=== PATIENT | male | born 1980 | race Caucasian/White ===

== ENCOUNTER 2019-11-18 12:49 | Emergency (ER) | payer MEDICAID, OTHER ==
[~2019-11-18] VITALS: Ht 188 cm; Wt 66.0 kg
[2019-11-18 13:05] VITALS: BP 119/85
== END 2019-11-18 14:21 | disposition home or self-care (01) ==
LOC: ER 12:49
DX: Z76.0 Encounter for issue of repeat prescription (principal); F20.9 Schizophrenia, unspecified
CPT/HCPCS: 99283

== ENCOUNTER 2020-03-23 15:06 | Emergency (ER) | payer MEDICAID ==
[~2020-03-23] VITALS: Ht 188 cm; Wt 80.0 kg
[2020-03-23 15:13] VITALS: BP 120/83
[2020-03-23] MEDS ORDERED: ARIP30TA2 MT (15:58)
== END 2020-03-23 16:33 | disposition home or self-care (01) ==
LOC: ER 15:06
DX: Z76.0 Encounter for issue of repeat prescription (principal); F20.9 Schizophrenia, unspecified; F15.10 Other stimulant abuse, uncomplicated
CPT/HCPCS: 99283

== ENCOUNTER 2021-08-15 11:09 | Emergency (ER) | payer MEDICAID ==
[~2021-08-15] VITALS: Ht 188 cm; Wt 68.0 kg
[~2021-08-15 11:09] MED LIST: ARIP30TA2 MT
[2021-08-15] MEDS ORDERED: SULFAMETHOXAZOLE/TRIMETHOPRIM 800/160MG TABLET PO ONE (12:00)
[2021-08-15] MEDS ORDERED: CEFTRIAXONE SODIUM 500 MG/VIAL IM ONE (12:00)
[2021-08-15] MEDS ORDERED: IBUPROFEN 600MG TABLET PO ONE (12:00)
[2021-08-15] MEDS ORDERED: CEPH500C2 PO (12:03)
[2021-08-15] MEDS ORDERED: SULF1TAB48 MT (12:03)
[2021-08-15] MEDS ORDERED: IBUP-2029 PO (12:04)
[2021-08-15] MEDS ORDERED: TETANUS, DIPHTHERIA, PERTUSSIS VAC/PF 0.5ML (>10YR OLD) IM ONE (12:15)
[2021-08-15 13:58] VITALS: BP 125/64
[2021-08-17 07:08] LABS: HIV SCREEN 4G Non Reactive (Non Reactive)
== END 2021-08-15 13:59 | disposition home or self-care (01) ==
LOC: ER 11:09
DX: R21 Rash and other nonspecific skin eruption (principal); F12.10 Cannabis abuse, uncomplicated; Z59.00 Homelessness unspecified; Z86.59 Personal history of other mental and behavioral disorders
CPT/HCPCS: 87389; 90471; 90715; 96372; 99284; J0696

== ENCOUNTER 2021-09-02 16:16 | Emergency (ER) | payer MEDICAID, OTHER ==
[~2021-09-02] VITALS: Ht 170.2 cm; Wt 78.0 kg
[~2021-09-02 16:16] MED LIST changes: +CEPH500C2 PO; +IBUP-2029 PO; +SULF1TAB48 MT
[2021-09-02 17:22] VITALS: BP 120/77
== END 2021-09-02 21:38 | disposition home or self-care (01) ==
LOC: ER 16:16
DX: R21 Rash and other nonspecific skin eruption (principal)
CPT/HCPCS: 99281

== ENCOUNTER 2021-09-04 09:35 | Emergency (ER) | payer OTHER ==
[~2021-09-04] VITALS: Ht 188 cm; Wt 73.0 kg
[2021-09-04] MEDS ORDERED: CEPH500T MT (17:20)
[2021-09-04] MEDS ORDERED: BO1 TP (17:20)
[2021-09-04 18:24] VITALS: BP 128/78
== END 2021-09-04 18:26 | disposition home or self-care (01) ==
LOC: ER 09:35
DX: L03.114 Cellulitis of left upper limb (principal); L03.113 Cellulitis of right upper limb; L03.311 Cellulitis of abdominal wall; R21 Rash and other nonspecific skin eruption; F15.10 Other stimulant abuse, uncomplicated; Z59.00 Homelessness unspecified
CPT/HCPCS: 99283

== ENCOUNTER 2022-02-05 14:06 | Emergency (ER) | payer OTHER ==
[~2022-02-05] VITALS: Ht 182.9 cm; Wt 90.0 kg
[~2022-02-05 14:06] MED LIST changes: +BO1 TP; +CEPH500T MT
[2022-02-05 14:16] VITALS: BP 123/70
== END 2022-02-05 19:40 | disposition left against medical advice (07) ==
LOC: ER 14:06
DX: Z76.0 Encounter for issue of repeat prescription (principal); F20.9 Schizophrenia, unspecified; F15.10 Other stimulant abuse, uncomplicated
CPT/HCPCS: 99281

== ENCOUNTER 2022-03-02 17:39 | Emergency (ER) | payer OTHER ==
[~2022-03-02] VITALS: Ht 188 cm; Wt 82.0 kg
[2022-03-02 17:49] VITALS: BP 116/71
[2022-03-02] MEDS ORDERED: ARIP15TA2 MT (18:27)
== END 2022-03-02 18:35 | disposition home or self-care (01) ==
LOC: ER 17:39
DX: Z76.0 Encounter for issue of repeat prescription (principal); F12.10 Cannabis abuse, uncomplicated; Z79.899 Other long term (current) drug therapy; Z86.59 Personal history of other mental and behavioral disorders
CPT/HCPCS: 99281

== ENCOUNTER 2023-03-14 14:34 | Emergency (ER) | payer OTHER ==
[~2023-03-14] VITALS: Ht 188 cm; Wt 69.0 kg
[~2023-03-14 14:34] MED LIST changes: +ARIP15TA2 MT; +ARIP20TA2 MT; +ARIP20TA2 PO
[2023-03-14 14:45] VITALS: O2SAT 92
[2023-03-14] MEDS ORDERED: ARIP20TA2 MT (15:41)
[2023-03-14 16:07] VITALS: BP 122/66; PULSE 73; RESP 15; TEMP 98.7
== END 2023-03-14 16:28 | disposition home or self-care (01) ==
LOC: ER 14:34
DX: F20.9 Schizophrenia, unspecified (principal); F15.10 Other stimulant abuse, uncomplicated; Z76.0 Encounter for issue of repeat prescription; Z59.00 Homelessness unspecified; Z79.899 Other long term (current) drug therapy
CPT/HCPCS: 99283

== ENCOUNTER 2023-03-25 15:39 | Emergency (ER) | payer OTHER ==
[~2023-03-25] VITALS: Ht 188 cm; Wt 72.0 kg
[2023-03-25 15:42] VITALS: BP 123/84; PULSE 110; RESP 20; TEMP 98.4; O2SAT 100
[2023-03-25] MEDS ORDERED: ARIP20TA2 MT (15:57)
[2023-03-26] MEDS ORDERED: ARIP20TA2 MT (16:12)
== END 2023-03-25 16:37 | disposition home or self-care (01) ==
LOC: ER 15:39
DX: F20.9 Schizophrenia, unspecified (principal); F15.10 Other stimulant abuse, uncomplicated; Z79.899 Other long term (current) drug therapy
CPT/HCPCS: 99281; 99283

== ENCOUNTER 2023-03-26 15:38 | Emergency (ER) | payer OTHER ==
[~2023-03-26] VITALS: Ht 188 cm; Wt 66.0 kg
[2023-03-26 15:52] VITALS: BP 132/88; PULSE 72; RESP 12; TEMP 98.7; O2SAT 100
[2023-03-26] MEDS ORDERED: ARIP20TA2 MT (16:12)
== END 2023-03-26 17:29 | disposition home or self-care (01) ==
LOC: ER 15:38
DX: Z76.0 Encounter for issue of repeat prescription (principal)
CPT/HCPCS: 99281

== ENCOUNTER 2023-03-28 15:27 | Emergency (ER) | payer OTHER ==
[~2023-03-28] VITALS: Ht 182.9 cm; Wt 75.0 kg
[2023-03-28 15:28] VITALS: PULSE 88
[2023-03-28 15:30] VITALS: BP 133/83; RESP 16; TEMP 97.8; O2SAT 100
[2023-03-28] MEDS ORDERED: ARIP20TA2 MT (16:46)
== END 2023-03-28 16:55 | disposition home or self-care (01) ==
LOC: ER 15:27
DX: F20.9 Schizophrenia, unspecified (principal); Z76.0 Encounter for issue of repeat prescription; Z79.899 Other long term (current) drug therapy
CPT/HCPCS: 99281

== ENCOUNTER 2023-03-31 12:34 | Emergency (ER) | payer MEDICAID, OTHER ==
[~2023-03-31] VITALS: Ht 188 cm; Wt 68.0 kg
[2023-03-31 12:41] VITALS: O2SAT 100
[2023-03-31 15:20] VITALS: BP 112/62; PULSE 88; RESP 18; TEMP 98.7
== END 2023-03-31 15:25 | disposition home or self-care (01) ==
LOC: ER 12:34
DX: F20.9 Schizophrenia, unspecified (principal); F15.10 Other stimulant abuse, uncomplicated; Z59.00 Homelessness unspecified; Z79.899 Other long term (current) drug therapy
CPT/HCPCS: 99281

== ENCOUNTER 2023-03-31 17:13 | Emergency (ER) | payer MEDICAID ==
[~2023-03-31] VITALS: Ht 188 cm; Wt 68.0 kg
[2023-03-31 17:20] VITALS: BP 118/75; PULSE 63; RESP 20; TEMP 97.8; O2SAT 100
== END 2023-03-31 20:32 | disposition home or self-care (01) ==
LOC: ER 17:13
DX: F23 Brief psychotic disorder (principal); F15.10 Other stimulant abuse, uncomplicated; Z79.899 Other long term (current) drug therapy; Z59.00 Homelessness unspecified
CPT/HCPCS: 99281

== ENCOUNTER 2023-04-14 08:20 | Emergency (ER) | payer MEDICAID, OTHER ==
[~2023-04-14] VITALS: Ht 182.9 cm; Wt 64.0 kg
[2023-04-14 08:31] VITALS: BP 131/78; PULSE 87; RESP 16; TEMP 98.9; O2SAT 100
[2023-04-14] MEDS ORDERED: ARIP20TA2 MT (10:42)
== END 2023-04-14 12:50 | disposition home or self-care (01) ==
LOC: ER 08:20
DX: F20.9 Schizophrenia, unspecified (principal); F15.90 Other stimulant use, unspecified, uncomplicated; Z76.0 Encounter for issue of repeat prescription; Z79.899 Other long term (current) drug therapy
CPT/HCPCS: 99283

== ENCOUNTER 2024-08-26 18:28 | Emergency (ER) | payer MEDICAID ==
[~2024-08-26] VITALS: Ht 182.9 cm; Wt 81.0 kg
[~2024-08-26 18:28] MED LIST changes: -ARIP15TA2 MT; -ARIP20TA2 PO; +ARIP20TA62 MT; -BO1 TP; -CEPH500C2 PO; -CEPH500T MT; -IBUP-2029 PO; +IBUP-2030 MT; -SULF1TAB48 MT
[2024-08-26 18:37] VITALS: O2SAT 100
[2024-08-26 21:02] VITALS: BP 120/79; PULSE 115; RESP 14; TEMP 36.9; O2SAT 100
== END 2024-08-26 20:20 | disposition left against medical advice (07) ==
LOC: ER 18:28
DX: R44.0 Auditory hallucinations (principal); R44.1 Visual hallucinations; Z76.0 Encounter for issue of repeat prescription; Z53.21 Procedure and treatment not carried out due to patient leaving prior to being seen by health care provider

== ENCOUNTER 2024-09-02 16:34 | Emergency (ER) | payer MEDICAID ==
[~2024-09-02] VITALS: Ht 182.9 cm; Wt 75.0 kg
[2024-09-02 16:40] VITALS: O2SAT 99
[2024-09-02] MEDS ORDERED: ARIP20TA2 MT (17:17)
[2024-09-02 17:33] VITALS: BP 126/76; PULSE 99; RESP 14; TEMP 36.8; O2SAT 97
== END 2024-09-02 17:38 | disposition home or self-care (01) ==
LOC: ER 16:34
DX: F20.9 Schizophrenia, unspecified (principal); Z76.0 Encounter for issue of repeat prescription; Z79.899 Other long term (current) drug therapy
CPT/HCPCS: 99281

== ENCOUNTER 2024-10-13 14:52 | Emergency (ER) | payer MEDICAID ==
[~2024-10-13] VITALS: Ht 188 cm; Wt 66.0 kg
[2024-10-13 15:00] VITALS: O2SAT 100
[2024-10-13] MEDS ORDERED: ARIP20TA2 MT (17:31)
[2024-10-13 17:40] VITALS: BP 110/72; PULSE 81; RESP 18; TEMP 36.4; O2SAT 99
== END 2024-10-13 17:41 | disposition home or self-care (01) ==
LOC: ER 14:52
DX: F20.9 Schizophrenia, unspecified (principal); Z76.0 Encounter for issue of repeat prescription; Z79.899 Other long term (current) drug therapy
CPT/HCPCS: 99282

== ENCOUNTER 2024-11-27 13:42 | Emergency (ER) | payer MEDICAID ==
[~2024-11-27] VITALS: Ht 182.9 cm; Wt 71.0 kg
[2024-11-27 13:51] VITALS: BP 117/80; TEMP 36.6; O2SAT 100
[2024-11-27 14:00] VITALS: PULSE 88; RESP 18; O2SAT 100
== END 2024-11-27 14:07 | disposition home or self-care (01) ==
LOC: ER 13:42
DX: F20.9 Schizophrenia, unspecified (principal); Z76.0 Encounter for issue of repeat prescription; Z79.899 Other long term (current) drug therapy
CPT/HCPCS: 99281; 99282

== ENCOUNTER 2024-12-09 12:33 | Emergency (ER) | payer MEDICAID ==
[~2024-12-09] VITALS: Ht 188 cm; Wt 73.0 kg
[2024-12-09 12:38] VITALS: O2SAT 100
[2024-12-09] MEDS ORDERED: ARIP20TA62 MT (14:44)
[2024-12-09 15:16] VITALS: BP 123/62; PULSE 57; RESP 18; TEMP 36.7; O2SAT 100
== END 2024-12-09 15:18 | disposition home or self-care (01) ==
LOC: ER 12:33
DX: F20.9 Schizophrenia, unspecified (principal); Z76.0 Encounter for issue of repeat prescription; Z79.899 Other long term (current) drug therapy
CPT/HCPCS: 99281

== ENCOUNTER 2024-12-10 18:15 | Emergency (ER) | payer MEDICAID ==
[~2024-12-10] VITALS: Ht 182.9 cm; Wt 75.0 kg
[2024-12-10 18:20] VITALS: O2SAT 100
[2024-12-10 18:21] VITALS: BP 110/71; PULSE 66; RESP 18; TEMP 36.8; O2SAT 100
[2024-12-10] MEDS ORDERED: ARIPIPRAZOLE 5MG TABLET PO ONE (19:30)
[2024-12-10] MEDS: ARIPIPRAZOLE 5MG TABLET PO ONE ×2 (19:43→20:02)
== END 2024-12-10 20:03 | disposition home or self-care (01) ==
LOC: ER 18:15
DX: F41.9 Anxiety disorder, unspecified (principal); F20.9 Schizophrenia, unspecified; Z76.0 Encounter for issue of repeat prescription; Z79.899 Other long term (current) drug therapy
CPT/HCPCS: 99283

== ENCOUNTER 2024-12-13 21:10 | Emergency (ER) | payer MEDICAID ==
[~2024-12-13] VITALS: Ht 188 cm; Wt 66.0 kg
[2024-12-13 21:51] VITALS: O2SAT 99
[2024-12-13] MEDS ORDERED: ARIP30TA59 MT (22:10)
[2024-12-13 22:36] VITALS: BP 130/81; PULSE 85; RESP 18; TEMP 36.8; O2SAT 99
== END 2024-12-13 22:38 | disposition home or self-care (01) ==
LOC: ER 21:10
DX: F20.9 Schizophrenia, unspecified (principal); F41.9 Anxiety disorder, unspecified; Z76.0 Encounter for issue of repeat prescription; Z79.899 Other long term (current) drug therapy
CPT/HCPCS: 99281

== ENCOUNTER 2024-12-14 19:50 | Emergency (ER) | payer MEDICAID ==
[~2024-12-14] VITALS: Ht 188 cm; Wt 72.6 kg
[~2024-12-14 19:50] MED LIST changes: +ARIP30TA59 MT
[2024-12-14 19:57] VITALS: O2SAT 100
[2024-12-14] MEDS: TETANUS, DIPHTHERIA, PERTUSSIS VAC/PF 0.5ML (>10YR OLD) IM ONE (20:45)
[2024-12-14] MEDS: LIDOCAINE HCL 1% 20ML VIAL INFIL ONE (21:17)
[2024-12-15 00:22] VITALS: BP 114/70; PULSE 84; RESP 15; TEMP 36.6; O2SAT 100
[2024-12-15] MEDS: ACETAMINOPHEN 325MG TABLET PO ONE (00:26)
== END 2024-12-15 00:28 | disposition home or self-care (01) ==
LOC: ER 19:50
DX: S00.451A Superficial foreign body of right ear, initial encounter (principal); F20.9 Schizophrenia, unspecified; F41.9 Anxiety disorder, unspecified; Z79.899 Other long term (current) drug therapy; W45.8XXA Other foreign body or object entering through skin, initial encounter; Y93.89 Activity, other specified; Y92.89 Other specified places as the place of occurrence of the external cause; Y99.8 Other external cause status
CPT/HCPCS: 99284; J2003; Z7610 ×3; 90715

== ENCOUNTER 2024-12-18 07:34 | Emergency (ER) | payer MEDICAID ==
[~2024-12-18] VITALS: Ht 188 cm; Wt 68.0 kg
[2024-12-18 07:37] VITALS: BP 135/79; TEMP 36.7; O2SAT 100
[2024-12-18 07:44] VITALS: PULSE 88; RESP 18; O2SAT 99
[2024-12-18] MEDS ORDERED: ARIP30TA2 MT (08:44)
== END 2024-12-18 09:01 | disposition home or self-care (01) ==
LOC: ER 07:34
DX: F20.9 Schizophrenia, unspecified (principal); F41.9 Anxiety disorder, unspecified; Z76.0 Encounter for issue of repeat prescription; Z79.899 Other long term (current) drug therapy
CPT/HCPCS: 99281

== ENCOUNTER 2025-01-01 19:12 | Emergency (ER) | payer MEDICAID ==
[~2025-01-01] VITALS: Ht 170.2 cm; Wt 66.0 kg
[2025-01-01 19:35] VITALS: O2SAT 100
[2025-01-01] MEDS: OLANZAPINE 5MG TABLET ODT PO ONE (20:27)
[2025-01-01] MEDS: HALOPERIDOL LACTATE 5MG/ML VIAL IM ONE (20:30)
[2025-01-01] MEDS: LORAZEPAM 2MG/ML UD SYRINGE IM SCH (20:30)
[2025-01-01] MEDS: DIPHENHYDRAMINE 50MG/ML VIAL IM PRN (20:30)
[2025-01-01 21:01] LABS: BASOPHILS % 0.5 % (0.0-2.0); EOSINOPHILS % 1.9 % (0.0-5.0); HEMATOCRIT. 40.6 % (42.0-52.0); HEMOGLOBIN. 13.5 g/dL (14.0-18.0); LYMPHOCYTES % 31.6 % (20.0-50.0); MEAN PLATELET VOLUME 7.9 fl (7.4-10.4); MONOCYTES % 8.7 % (2.0-8.0); NEUTROPHILS % 57.3 % (40.0-76.0); PLATELET 233 x1000/uL (130-400); RED BLOOD CELL COUNT 4.68 mill/uL (4.7-6.1); RED CELL DISTRIBUTION WIDTH 14.2 % (11.6-14.6)
[2025-01-01 21:12] LABS: *AMPHETAMINES SCREEN URINE PRESUMPTIVE POSITIVE (NEGATIVE); *BARBITURATES SCREEN URINE NEGATIVE (NEGATIVE); *BENZODIAZEPINES SCREEN URINE NEGATIVE (NEGATIVE); *COCAINE SCREEN URINE NEGATIVE (NEGATIVE); CANNABINOID URINE SCREEN NEGATIVE (NEGATIVE); ECSTASY MDMA SCREEN URINE NEGATIVE (NEGATIVE); METHADONE URINE SCREEN NEGATIVE (NEGATIVE); OPIATES URINE SCREEN NEGATIVE (NEGATIVE); PHENCYCLIDINE URINE SCREEN NEGATIVE (NEGATIVE)
[2025-01-01 21:18] LABS: CREATININE 1.0 mg/dL (0.6-1.3)
[2025-01-01 21:19] LABS: UREA NITROGEN BLOOD 10 mg/dL (9-23)
[2025-01-01 21:20] LABS: ASPARTATE AMINOTRANSFERASE 16 IU/L (<34)
[2025-01-01 21:21] LABS: BILIRUBIN DIRECT 0.2 mg/dL (<=3.0); BILIRUBIN TOTAL 0.7 mg/dL (0.1-1.0); PROTEIN TOTAL 6.9 g/dL (6.0-8.3)
[2025-01-02 00:48] VITALS: BP 111/54; PULSE 56; RESP 18; TEMP 36.9; O2SAT 98
== END 2025-01-02 01:04 ==
LOC: ER 19:12
DX: R44.0 Auditory hallucinations (principal); Z79.899 Other long term (current) drug therapy; Z20.822 Contact with and (suspected) exposure to COVID-19
CPT/HCPCS: 80076; 80305; 80048; 80307; 80329; 80320; 83735; 85025; 36415; 93005; 96372; 99285; 87426; J1200; J1630; J2060; G0480

== ENCOUNTER 2025-02-06 15:42 | Emergency (ER) | payer MEDICAID ==
[~2025-02-06] VITALS: Ht 188 cm; Wt 70.0 kg
[2025-02-06 15:46] VITALS: BP 123/71; TEMP 36.9; O2SAT 99
[2025-02-06 15:47] VITALS: PULSE 115; RESP 16; O2SAT 98
[2025-02-06] MEDS ORDERED: ARIP30TA2 MT (16:08)
== END 2025-02-06 16:29 | disposition home or self-care (01) ==
LOC: ER 15:42
DX: F20.9 Schizophrenia, unspecified (principal); F41.9 Anxiety disorder, unspecified; F12.90 Cannabis use, unspecified, uncomplicated; Z76.0 Encounter for issue of repeat prescription; Z79.899 Other long term (current) drug therapy
CPT/HCPCS: 99283

== ENCOUNTER 2025-02-06 17:24 | Emergency (ER) | payer MEDICAID ==
[~2025-02-06] VITALS: Ht 188 cm; Wt 73.0 kg
[2025-02-06 17:31] VITALS: O2SAT 99
[2025-02-06 19:55] LABS: CLARITY URINE CLEAR (CLEAR); COLOR URINE YELLOW (YELLOW); PH URINE 6.0 (4.5-8.0); SPECIFIC GRAVITY URINE 1.027 (1.005-1.030)
[2025-02-06 19:56] LABS: *AMPHETAMINES SCREEN URINE NEGATIVE (NEGATIVE); *BARBITURATES SCREEN URINE NEGATIVE (NEGATIVE); *BENZODIAZEPINES SCREEN URINE NEGATIVE (NEGATIVE); *COCAINE SCREEN URINE NEGATIVE (NEGATIVE); CANNABINOID URINE SCREEN NEGATIVE (NEGATIVE); ECSTASY MDMA SCREEN URINE NEGATIVE (NEGATIVE); GLUCOSE URINE NEGATIVE (NEGATIVE); KETONES URINE TRACE (NEGATIVE); METHADONE URINE SCREEN NEGATIVE (NEGATIVE); NITRITE URINE NEGATIVE (NEGATIVE); OCCULT BLOOD URINE NEGATIVE (NEGATIVE); OPIATES URINE SCREEN NEGATIVE (NEGATIVE); PHENCYCLIDINE URINE SCREEN NEGATIVE (NEGATIVE); PROTEIN URINE NEGATIVE (NEGATIVE); UROBILINOGEN URINE 1.0 E.U./dL (0.2-1.0)
[2025-02-06 19:57] LABS: LEUKOCYTE ESTERASE URINE NEGATIVE (NEGATIVE)
[2025-02-06 20:01] LABS: BASOPHILS % 0.3 % (0.0-2.0); EOSINOPHILS % 1.5 % (0.0-5.0); HEMATOCRIT. 41.1 % (42.0-52.0); HEMOGLOBIN. 13.5 g/dL (14.0-18.0); LYMPHOCYTES % 25.1 % (20.0-50.0); MEAN PLATELET VOLUME 8.8 fl (7.4-10.4); MONOCYTES % 9.4 % (2.0-8.0); NEUTROPHILS % 63.7 % (40.0-76.0); PLATELET 250 x1000/uL (130-400); RED BLOOD CELL COUNT 4.76 mill/uL (4.7-6.1); RED CELL DISTRIBUTION WIDTH 14.0 % (11.6-14.6)
[2025-02-06 20:17] LABS: CREATININE 0.9 mg/dL (0.6-1.3); ETHANOL BLOOD < 10 mg/dL (<10); UREA NITROGEN BLOOD 11 mg/dL (9-23)
[2025-02-07 08:00] VITALS: BP 109/59; PULSE 56; RESP 16; TEMP 36.6; O2SAT 99
== END 2025-02-07 08:15 ==
LOC: ER 17:24
DX: F20.9 Schizophrenia, unspecified (principal); F41.9 Anxiety disorder, unspecified; Z79.899 Other long term (current) drug therapy; Z20.822 Contact with and (suspected) exposure to COVID-19
CPT/HCPCS: 80305; 80048; 81003; 80307; 80329; 80320; 85025; 36415; 99285; 87426; Z7610; G0480

== ENCOUNTER 2025-02-18 12:51 | Emergency (ER) | payer MEDICAID ==
[~2025-02-18] VITALS: Ht 180.3 cm; Wt 74.0 kg
[2025-02-18 13:07] VITALS: O2SAT 100
[2025-02-18 13:21] VITALS: BP 123/74; PULSE 100; RESP 18; TEMP 36.7; O2SAT 100
[2025-02-18] MEDS ORDERED: ARIP30TA2 MT (14:18)
== END 2025-02-18 14:41 | disposition left against medical advice (07) ==
LOC: ER 12:51
DX: Z76.0 Encounter for issue of repeat prescription (principal); F41.9 Anxiety disorder, unspecified; F20.9 Schizophrenia, unspecified; Z79.899 Other long term (current) drug therapy
CPT/HCPCS: 99283

== ENCOUNTER 2025-03-10 09:26 | Emergency (ER) | payer MEDICAID ==
[~2025-03-10] VITALS: Ht 188 cm; Wt 80.0 kg
[2025-03-10 09:56] VITALS: O2SAT 99
[2025-03-10 10:15] LABS: CLARITY URINE CLEAR (CLEAR); COLOR URINE YELLOW (YELLOW); GLUCOSE URINE NEGATIVE (NEGATIVE); KETONES URINE NEGATIVE (NEGATIVE); LEUKOCYTE ESTERASE URINE NEGATIVE (NEGATIVE); NITRITE URINE NEGATIVE (NEGATIVE); OCCULT BLOOD URINE NEGATIVE (NEGATIVE); PH URINE 5.5 (4.5-8.0); PROTEIN URINE NEGATIVE (NEGATIVE); SPECIFIC GRAVITY URINE 1.025 (1.005-1.030); UROBILINOGEN URINE 1.0 E.U./dL (0.2-1.0)
[2025-03-10 10:32] LABS: BASOPHILS % 0.4 % (0.0-2.0); EOSINOPHILS % 2.4 % (0.0-5.0); HEMATOCRIT. 40.3 % (42.0-52.0); HEMOGLOBIN. 13.5 g/dL (14.0-18.0); LYMPHOCYTES % 21.6 % (20.0-50.0); MEAN PLATELET VOLUME 8.6 fl (7.4-10.4); MONOCYTES % 8.6 % (2.0-8.0); NEUTROPHILS % 67.0 % (40.0-76.0); PLATELET 254 x1000/uL (130-400); RED BLOOD CELL COUNT 4.68 mill/uL (4.7-6.1); RED CELL DISTRIBUTION WIDTH 14.2 % (11.6-14.6)
[2025-03-10 10:45] LABS: CREATININE 0.8 mg/dL (0.6-1.3); ETHANOL BLOOD < 10 mg/dL (<10); UREA NITROGEN BLOOD 10 mg/dL (9-23)
[2025-03-10 10:59] LABS: *AMPHETAMINES SCREEN URINE NEGATIVE (NEGATIVE); *BARBITURATES SCREEN URINE NEGATIVE (NEGATIVE); *BENZODIAZEPINES SCREEN URINE NEGATIVE (NEGATIVE); *COCAINE SCREEN URINE NEGATIVE (NEGATIVE); CANNABINOID URINE SCREEN NEGATIVE (NEGATIVE); ECSTASY MDMA SCREEN URINE NEGATIVE (NEGATIVE); METHADONE URINE SCREEN NEGATIVE (NEGATIVE); OPIATES URINE SCREEN NEGATIVE (NEGATIVE); PHENCYCLIDINE URINE SCREEN NEGATIVE (NEGATIVE)
[2025-03-10] MEDS: ARIPIPRAZOLE 5MG TABLET PO ONE (11:13)
[2025-03-11 06:18] VITALS: BP 115/75; PULSE 68; RESP 16; TEMP 36.8; O2SAT 99
[2025-03-11] MEDS ORDERED: ARIPIPRAZOLE 5MG TABLET PO SCH (09:00)
== END 2025-03-11 06:33 ==
LOC: ER 09:26
DX: R45.851 Suicidal ideations (principal); Z20.822 Contact with and (suspected) exposure to COVID-19; Z79.899 Other long term (current) drug therapy
CPT/HCPCS: 36415; 80048; 80305; 80307; 80320; 80329; 81003; 85025; 87426; 99285; G0480